=== PATIENT | female | born 1990 | race Caucasian/White ===

== ENCOUNTER 2016-04-12 20:21 | Emergency (ER) | payer OTHER ==
[~2016-04-12] VITALS: Wt 57.0 kg
[~2016-04-12 20:21] MED LIST: PREN-29 PO
--- NOTE | 2016-04-12 22:32 | RADRPT ---
PROCEDURE: XR Chest. CLINICAL INDICATION: Cough TECHNIQUE: PA and Lateral views of the chest were obtained. COMPARISON: None. FINDINGS: The cardiomediastinal silhouette is within normal limits..The lungs are clear though pleural effusio n or focal consolidation. No pneumothorax. The osseous structures and soft tissues are unremarkable. IMPRESSION: No evidence for active cardiopulmonary disease. RPTAT:AAJJ Charbel Whitaker Physician Date Time Electronically viewed and signed by Charbel Whitaker Physician on 04/12/2016 22:31 DAVID/
--- NOTE | 2016-04-12 22:35 | ERD ---
ER Documentation Chief Complaint Date/Time DATE: 04/12/16 Chief Complaint Frontal sinus pain, congestion, cough, left ear pain HPI The patient is a 25-year-old female who presents to the Emergency Department with complaint of cough, nasal congestion, left ear pain, and frontal facial pain. The patient reports that her symptoms initially began two weeks ago, with onset of productive cough of green-colored sputum. She notes that her cough has remained persistent since onset, and is most bothersome at night. Over the past two days, she had noted increased chills, myalgias, and development of pressure-like pain over the region of the frontal sinus. She notes that the pain is worse with any palpation, or when leaning her head forward. Additionally, she notes that her left ear "feels clogged", and she has been experiencing some pain to her posterior pharynx. She has been taking Aspirin for the sinus pain, with only minimal relief of symptoms. She denies fevers, nausea, vomiting. Denies eye redness or discharge. Denies neck pain, neck stiffness or new rashes. Denies shortness of breath. Denies any sick contacts with similar symptoms. ROS All systems reviewed and are negative except as per history of present illness. Medications Home Meds Active Scripts Pseudoephedrine Hcl (Sudafed 12 Hour) 120 Mg Tablet.sa, 120 MG PO BID, #20 Prov:LIAM SANCHEZ PA-C 04/12/16 Ibuprofen* (Motrin*) 600 Mg Tab, 600 MG PO Q6, #30 TAB Prov:LIAM SANCHEZ PA-C 04/12/16 Amoxicillin/Potassium Clav (Amox-Clav 875-125 mg Tablet) 875-125 mg Tab, 1 TAB PO BID for 10 Days, #20 TAB Prov:LIAM SANCHEZ PA-C 04/12/16 Reported Medications Vit-Fe Fumarate-FA* (Mckinley Tablet*) 1 Tab Tablet, 1 TAB PO, TAB 02/18/14 Allergies Allergies: Coded Allergies: No Known Drug Allergies (Verified Allergy, 10/11/11) PMhx/Soc Medical and Surgical Hx: pt denies Medical Hx Anesthesia Reaction: No Hx Neurological Disorder: No Hx Respiratory Disorders: No Hx Cardiac Disorders: No Hx Psychiatric Problems: No Hx Miscellaneous Medical Probl: No Hx Alcohol Use: No Hx Substance Use: No Hx Tobacco Use: Yes Smoking Status: Current every day smoker Physical Exam Vitals Vital Signs Date Time Temp Pulse Resp B/P Pulse Ox O2 Delivery O2 Flow Rate FiO2 04/12/16 23:10 99.5 86 20 119/61 100 Room Air 04/12/16 20:29 98.0 86 121/68 99 Physical Exam GENERAL: Well-developed, well-nourished, in no acute distress HEENT: Head is normocephalic, atraumatic. Tenderness to palpation and percussion over the frontal sinus. No maxillary sinus tenderness. No scleral pallor or icterus. Pupils equal, round and reactive to light. Extraocular movements intact. Conjunctiva pink. Bilaterally tympanic membranes are clear with no evidence of erythema or dulling of the light reflex. Minimal fluid noted behind left tympanic membrane. Edematous nasal mucosa with mucoid nasal discharge. Postnasal drip. Moist mucous membranes. No pharyngeal erythema or exudates. Uvula is midline. No trismus, stridor, or excessive drooling. No tripoding. No brawny induration. Phonation is normal. NECK: Supple. No masses, no tenderness, no lymphadenopathy. Trachea midline. No nuchal rigidity. Full range of motion. RESPIRATORY: Lungs are clear to auscultation bilaterally. No rales, rhonchi or wheezing. Equal breath sounds. Normal expiratory effort. CARDIOVASCULAR: Regular rate and rhythm. S1 and S2 normal. No murmurs. GASTROINTESTINAL: Abdomen is soft, nontender, and nondistended. BACK: Normal range of motion. EXTREMITIES: No clubbing, cyanosis, or edema. Normal skin perfusion. Moving all extremities. Muscle tone is normal. No focal swelling or erythema. Distal pulses are palpable, 2+ bilaterally. Capillary refill is less than 2 seconds. NEUROLOGIC: The patient is alert, awake, and oriented x 3. No focal neurologic deficits. Cranial nerves are grossly intact. Gait is observed and normal. There is no ataxia. Motor and sensation grossly intact. Speech is normal. INTEGUMENT: Skin is clean, dry and intact. No rashes, lesions or petechiae present. Normal turgor. PSYCHIATRIC: Appropriate; Cooperative. Procedures/MDM DIAGNOSTIC TESTS AND INTERPRETATION: PROCEDURE: XR Chest. CLINICAL INDICATION: Cough TECHNIQUE: PA and Lateral views of the chest were obtained. COMPARISON: None. FINDINGS:The cardiomediastinal silhouette is within normal limits..The lungs are clear though pleural effusion or focal consolidation. No pneumothorax. The osseous structures and soft tissues are unremarkable. IMPRESSION:No evidence for active cardiopulmonary disease. Physician Ludwin Date Time Electronically viewed and signed by Physician Ludwin on 04/12/2016 22:31 MEDICAL DECISION MAKING: This is a 25-year-old female presenting to the emergency department complaining of generalized body aches, frontal pressure- like headache, nasal congestion, cough and sore throat. On physical examination , she had tenderness to palpation and percussion over the frontal sinus. Purulent mucoid nasal discharge noted. Posterior pharynx with postnasal drip. Otherwise, no exudates or palatal petechiae. She exhibited no altered mental status, neurologic deficits or meningeal signs. She was afebrile, with no tachycardia, no tachypnea, no signs of respiratory distress. She had a normal O2 saturation on room air. Her lungs were clear to auscultation, with no rales, rhonchi or wheezing. The differential diagnosis includes, but is not limited to , subarachnoid hemorrhage, intracerebral bleeding, cerebral aneurysm, meningitis , encephalitis, brain abscess, stroke, tumor, sinusitis, migraine headache, tension headache, glaucoma, cluster headache, pseudotumor cerebri, encephalopathy, upper respiratory infection, sepsis, otitis media, pneumonia, pertussis, pharyngitis, bronchitis, influenza. No evidence of acute sepsis, bacteremia, dehydration, meningitis, or other life-threatening etiology. Her condition remained stable and appropriate during her stay. After rest, the patient reports no new complaints. Upon my review and interpretation of the patient's presentation and overall ER course, I believe the patient's symptoms are most consistent with acute frontal sinusitis. The patient is well-appearing. She had no clinical evidence of pneumonia. Patient's neck was supple, with no altered mental status, and therefore I doubt meningitis. Oropharynx was clear, with no exudates, petechiae , no associated anterior cervical lymphadenopathy, and therefore I doubt streptococcal pharyngitis. Uvula midline, no brawny induration, no trismus, no stridor, no submandibular swelling, no evidence of peritonsillar abscess, retropharyngeal abscess or Keon's angina. Tympanic membranes were clear bilaterally, with no erythema or bulging noted, and therefore I doubt otitis media. At this time, the patient is in stable condition and she is not experiencing any signs of distress, and therefore she can be discharged home with a prescription for Augmentin, Sudafed and Ibuprofen, and strict return precautions for signs of deteriorating or worsening condition. The patient is advised to follow up with her primary care provider for reevaluation and further management within 2-3 days, or return to the ER sooner for any worsening symptoms. I shared my medical decision making and plan with the patient at length and in great detail, and she verbally understands and agrees with the plan for further observation and care as an outpatient. At the time of discharge, all questions were answered. Departure Diagnosis: Primary Impression: Acute frontal sinusitis Recurrence: not specified as recurrent Qualified Code: J01.10 - Acute frontal sinusitis, recurrence not specified Condition: Stable Patient Instructions: Acute Sinusitis, Self-Care for Sinusitis, Sinusitis, Abx Tx Additional Instructions: Call your primary care doctor TOMORROW for an appointment during the next 2-3 days.See the doctor sooner or return here if your condition worsens before your appointment time. LIAM SANCHEZ PA-C Apr 12, 2016 22:35
[2016-04-12] MEDS ORDERED: AMOX1TAB10 PO (22:36)
[2016-04-12] MEDS ORDERED: IBUP-1542 PO (22:36)
[2016-04-12] MEDS ORDERED: PSEU120T51 PO (22:36)
[2016-04-12 23:10] VITALS: BP 119/61; PULSE 86; RESP 20; TEMP 99.5
== END 2016-04-12 23:11 | disposition home or self-care (01) ==
LOC: FTE 20:21
DX: J01.10 Acute frontal sinusitis, unspecified (principal); F17.210 Nicotine dependence, cigarettes, uncomplicated
CPT/HCPCS: 71020; Z7502